=== PATIENT | male | born 1950 | race Caucasian/White ===

== ENCOUNTER 2017-11-17 07:34 | Day surgery (SDC) | payer MEDICARE ==
[2017-11-17] MEDS ORDERED: PROPOFOL 200 MG/20 ML VIAL As Ordered ×2 (08:07→08:34)
[2017-11-17] MEDS ORDERED: LIDOCAINE 2% INJ 100 MG/5 ML SDV (FOR ANES.) As Ordered (08:07)
[2017-11-17] MEDS: NS 1,000 ML IV (08:08)
[2017-11-17 09:05] LABS: BEDSIDE GLUCOSE 294 MG/DL (80-115)
== END 2017-11-17 09:31 | disposition home or self-care (01) ==
LOC: M OPP 07:34
DX: R19.5 Other fecal abnormalities (principal); Z15.09 Genetic susceptibility to other malignant neoplasm; K64.0 First degree hemorrhoids; K57.30 Diverticulosis of large intestine without perforation or abscess without bleeding; R12 Heartburn; K22.8 Other specified diseases of esophagus; K44.9 Diaphragmatic hernia without obstruction or gangrene; I10 Essential (primary) hypertension; E78.5 Hyperlipidemia, unspecified; E10.9 Type 1 diabetes mellitus without complications; E03.9 Hypothyroidism, unspecified; K76.9 Liver disease, unspecified; R19.7 Diarrhea, unspecified; K21.9 Gastro-esophageal reflux disease without esophagitis; R06.02 Shortness of breath; M06.9 Rheumatoid arthritis, unspecified; M19.90 Unspecified osteoarthritis, unspecified site; M51.9 Unspecified thoracic, thoracolumbar and lumbosacral intervertebral disc disorder; G47.8 Other sleep disorders; G47.30 Sleep apnea, unspecified; R06.83 Snoring; Z87.442 Personal history of urinary calculi; R42 Dizziness and giddiness; Z88.5 Allergy status to narcotic agent; Z88.1 Allergy status to other antibiotic agents; Z88.8 Allergy status to other drugs, medicaments and biological substances; Z79.82 Long term (current) use of aspirin; Z79.899 Other long term (current) drug therapy; Z80.42 Family history of malignant neoplasm of prostate
CPT/HCPCS: 45378

== ENCOUNTER → 2021-05-17 | Outpatient (CLI) | payer MEDICARE ==
[~2021-05-17] MED LIST: ASPI81TA26 PO; ATOR80TA59 PO; BUPR1TAB53 PO; DITR1TAB PO; FLOM0.4C39 PO; IMOD2CAP PO; IRBE150T7 PO; LEVO100T5 PO; MYRB50TA PO; NOVOINJ3 SC; TOUJ1.2I SC; TYLE325T5 PO; VICT18IN SC
--- NOTE | 2021-05-17 15:40 | REP ---
INDICATION: CALCULUS OF KIDNEY COMPARISON: 02/05/2006 TECHNIQUE: Supine view of the abdomen and pelvis. FINDINGS: Evaluation is limited by overlying bowel gas and significant fecal stasis. However, bilateral intrarenal calculi are suspected measuring up to approximately 5 mm in the lower pole right kidney and 3 mm lower pole left kidney. Stable phleboliths noted in the left hemipelvis. Skeletal structures demonstrate age-related changes. IMPRESSION: 1. Bilateral nephroliths suggested. 2. Bowel gas pattern demonstrates significant fecal stasis. <Electronically signed by Francis Devries > 05/17/21 [id number]
== END ==
LOC: M PLAIMG 14:41
PROVIDERS: ATTEND Urology
DX: N20.0 Calculus of kidney (principal)

== ENCOUNTER 2022-11-25 19:37 | Observation (INO) | payer MEDICARE ==
[~2022-11-25] VITALS: Ht 152.4 cm; Wt 97.8 kg
[2022-11-25 20:31] LABS: BASO # 0.1 10^3/uL (0.0-0.2); BASO % 0.7 % (0.0-1.0); EOS # 0.2 10^3/uL (0.0-0.5); EOS % 2.4 % (0.0-3.0); HEMATOCRIT 44.7 % (42.0-52.0); HEMOGLOBIN 14.6 g/dl (13.5-17.5); LYMPH # 2.1 10^3/uL (1.5-5.0); LYMPH % 21.8 % (24.0-44.0); MEAN CORPUSCULAR HEMOGLOBIN 31.4 pg (27.0-33.0); MEAN CORPUSCULAR HGB CONC 32.7 g/dl (32.0-36.5); MEAN CORPUSCULAR VOLUME 96.1 fl (80.0-96.0); MONO # 0.9 10^3/uL (0.0-0.8); MONO % 9.1 % (2.0-8.0); NEUTROPHILS # 6.4 10^3/uL (1.5-8.5); NEUTROPHILS % 65.8 % (36.0-66.0); PLATELET COUNT, AUTOMATED 216 10^3/uL (150-450); RED BLOOD COUNT 4.65 10^6/uL (4.30-6.10); WHITE BLOOD COUNT 9.8 10^3/uL (4.0-10.0)
[2022-11-25 20:59] LABS: BLOOD UREA NITROGEN 20 MG/DL (9-23); CALCIUM LEVEL 8.7 MG/DL (8.3-10.6); CARBON DIOXIDE LEVEL 26 MMOL/L (20-31); CHLORIDE LEVEL 107 MMOL/L (98-107); CREATININE FOR GFR 0.74 MG/DL (0.70-1.30); GLOMERULAR FILTRATION RATE > 60.0 (>42); GLUCOSE, FASTING 116 MG/DL (74-106); POTASSIUM SERUM 4.4 MMOL/L (3.5-5.1); SODIUM LEVEL 138 MMOL/L (136-145)
[2022-11-25 21:02] LABS: THYROID STIMULATING HORMONE 1.471 uIU/ML (0.55-4.78)
[2022-11-25 21:03] LABS: RSV AMPLIFICATION NEGATIVE (NEGATIVE)
[2022-11-25] MEDS ORDERED: oxyCODONE 5MG TAB PO PRN (23:30)
[2022-11-25] MEDS ORDERED: IBUPROFEN 400MG TAB PO PRN (23:30)
[2022-11-26] MEDS ORDERED: GLUCOSE 4GM CHEW TABLET PO PRN (00:05)
[2022-11-26] MEDS ORDERED: DEXTROSE 50% 50ML SYRINGE IV PRN (00:05)
[2022-11-26] MEDS ORDERED: GLUCAGON INJ 1MG VIAL SC PRN (00:05)
[2022-11-26] MEDS ORDERED: DULA3PEN SC (00:15)
[2022-11-26] MEDS ORDERED: LOPE2TAB12 PO (00:15)
[2022-11-26] MEDS ORDERED: INSU100V2 SC (00:15)
[2022-11-26] MEDS ORDERED: ACET650T61 PO (00:15)
[2022-11-26] MEDS ORDERED: JARD1TAB PO (00:16)
[2022-11-26] MEDS ORDERED: ZETI10TA16 PO (00:16)
[2022-11-26] MEDS ORDERED: OMEP40CA5 PO (00:16)
[2022-11-26] MEDS ORDERED: HOME MED LIST COMPLETE! XX SCH (00:20)
[2022-11-26 00:29] VITALS: BP 147/78
[2022-11-26] MEDS ORDERED: LOPERAMIDE 2 MG CAPLET PO PRN (00:40)
[2022-11-26 05:46] LABS: HEMATOCRIT 41.3 % (42.0-52.0); HEMOGLOBIN 13.5 g/dl (13.5-17.5); MEAN CORPUSCULAR HEMOGLOBIN 31.4 pg (27.0-33.0); MEAN CORPUSCULAR HGB CONC 32.7 g/dl (32.0-36.5); PLATELET COUNT, AUTOMATED 210 10^3/uL (150-450); WHITE BLOOD COUNT 9.7 10^3/uL (4.0-10.0)
[2022-11-26] MEDS: LEVOTHYROXINE 100MCG TABLET (0.1MG) PO SCH (05:52)
[2022-11-26] MEDS: ACETAMINOPHEN TAB 650MG DOSE (2X325MG) PO PRN (05:52)
[2022-11-26 06:00] VITALS: BP 141/78
[2022-11-26 06:12] LABS: BLOOD UREA NITROGEN 20 MG/DL (9-23); CALCIUM LEVEL 8.6 MG/DL (8.3-10.6); CARBON DIOXIDE LEVEL 28 MMOL/L (20-31); CHLORIDE LEVEL 106 MMOL/L (98-107); CREATININE FOR GFR 0.69 MG/DL (0.70-1.30); GLOMERULAR FILTRATION RATE > 60.0 (>42); GLUCOSE, FASTING 102 MG/DL (74-106); MAGNESIUM LEVEL 1.8 MG/DL (1.8-2.4); POTASSIUM SERUM 4.3 MMOL/L (3.5-5.1); SODIUM LEVEL 141 MMOL/L (136-145)
[2022-11-26] MEDS: ENOXAPARIN 40MG/0.4ML SYRINGE (J1650 PER 10MG) SC SCH ×2 (08:34→20:07)
[2022-11-26] MEDS: buPROPion **SR TABLET** (ZYBAN) 150MG PO SCH (08:34)
[2022-11-26] MEDS: ASPIRIN 81MG ENTERIC TABLET PO SCH (08:35)
[2022-11-26] MEDS: OMEPRAZOLE 20MG CAP PO SCH (08:35)
[2022-11-26] MEDS: oxyBUTYnin *DITROPAN XL* 5 MG TABCR PO SCH ×2 (08:35→20:07)
[2022-11-26] MEDS: IRBESARTAN 150MG TAB PO SCH (08:36)
[2022-11-26] MEDS: ATORVASTATIN 20 MG TAB PO SCH (08:36)
[2022-11-26] MEDS: TAMSULOSIN 0.4 MG CAP PO SCH (08:36)
[2022-11-26] MEDS: INSULIN LISPRO (NovoLOG) PER UNIT SC SCH ×4 (08:56→20:07)
[2022-11-26] MEDS ORDERED: LEVEMIR (INSULIN DETEMIR) 1 UNITS/0.01ML SC SCH (09:00)
[2022-11-26] MEDS: EZETIMIBE 10MG TABLET (ZETIA) PO SCH (09:07)
[2022-11-26 14:00] VITALS: BP 127/74
[2022-11-26 21:15] VITALS: BP 125/74
[2022-11-27 06:00] VITALS: BP 131/67
[2022-11-27] MEDS: LEVOTHYROXINE 100MCG TABLET (0.1MG) PO SCH (06:00)
[2022-11-27] MEDS: INSULIN LISPRO (NovoLOG) PER UNIT SC SCH ×4 (09:05→20:29)
[2022-11-27] MEDS: oxyBUTYnin *DITROPAN XL* 5 MG TABCR PO SCH ×2 (09:06→20:36)
[2022-11-27] MEDS: ATORVASTATIN 20 MG TAB PO SCH (09:06)
[2022-11-27] MEDS: OMEPRAZOLE 20MG CAP PO SCH (09:06)
[2022-11-27] MEDS: buPROPion **SR TABLET** (ZYBAN) 150MG PO SCH (09:06)
[2022-11-27] MEDS: EZETIMIBE 10MG TABLET (ZETIA) PO SCH (09:06)
[2022-11-27] MEDS: IRBESARTAN 150MG TAB PO SCH (09:06)
[2022-11-27] MEDS: TAMSULOSIN 0.4 MG CAP PO SCH (09:06)
[2022-11-27] MEDS: ASPIRIN 81MG ENTERIC TABLET PO SCH (09:06)
[2022-11-27] MEDS: ENOXAPARIN 40MG/0.4ML SYRINGE (J1650 PER 10MG) SC SCH ×2 (09:07→20:37)
[2022-11-27] MEDS: LEVEMIR (INSULIN DETEMIR) 1 UNITS/0.01ML SC SCH (20:36)
[2022-11-27] MEDS: NYSTATIN 100,000 UNITS/GM TOPICAL PWD 15GM TOP SCH (20:37)
[2022-11-28] MEDS: LEVOTHYROXINE 100MCG TABLET (0.1MG) PO SCH (05:46)
[2022-11-28 05:52] VITALS: BP 134/74
[2022-11-28] MEDS: INSULIN LISPRO (NovoLOG) PER UNIT SC SCH ×4 (08:09→21:00)
[2022-11-28] MEDS: TAMSULOSIN 0.4 MG CAP PO SCH (08:10)
[2022-11-28] MEDS: oxyBUTYnin *DITROPAN XL* 5 MG TABCR PO SCH ×2 (08:11→21:32)
[2022-11-28] MEDS: ATORVASTATIN 20 MG TAB PO SCH (08:11)
[2022-11-28] MEDS: OMEPRAZOLE 20MG CAP PO SCH (08:11)
[2022-11-28] MEDS: ASPIRIN 81MG ENTERIC TABLET PO SCH (08:11)
[2022-11-28] MEDS: IRBESARTAN 150MG TAB PO SCH (08:12)
[2022-11-28] MEDS: ENOXAPARIN 40MG/0.4ML SYRINGE (J1650 PER 10MG) SC SCH ×2 (08:14→21:33)
[2022-11-28] MEDS: buPROPion **SR TABLET** (ZYBAN) 150MG PO SCH (08:14)
[2022-11-28] MEDS: EZETIMIBE 10MG TABLET (ZETIA) PO SCH (08:14)
[2022-11-28] MEDS: NYSTATIN 100,000 UNITS/GM TOPICAL PWD 15GM TOP SCH ×2 (08:15→21:33)
[2022-11-28] MEDS: ACETAMINOPHEN TAB 650MG DOSE (2X325MG) PO PRN (08:17)
[2022-11-28] MEDS: LEVEMIR (INSULIN DETEMIR) 1 UNITS/0.01ML SC SCH (21:33)
[2022-11-29 00:36] VITALS: O2SAT 94
[2022-11-29 06:40] VITALS: BP 118/66
[2022-11-29] MEDS: LEVOTHYROXINE 100MCG TABLET (0.1MG) PO SCH (06:40)
[2022-11-29] MEDS: INSULIN LISPRO (NovoLOG) PER UNIT SC SCH ×4 (07:40→20:15)
[2022-11-29] MEDS: EZETIMIBE 10MG TABLET (ZETIA) PO SCH (09:20)
[2022-11-29] MEDS: TAMSULOSIN 0.4 MG CAP PO SCH (09:20)
[2022-11-29] MEDS: OMEPRAZOLE 20MG CAP PO SCH (09:20)
[2022-11-29] MEDS: ASPIRIN 81MG ENTERIC TABLET PO SCH (09:20)
[2022-11-29] MEDS: ATORVASTATIN 20 MG TAB PO SCH (09:21)
[2022-11-29] MEDS: buPROPion **SR TABLET** (ZYBAN) 150MG PO SCH (09:21)
[2022-11-29] MEDS: oxyBUTYnin *DITROPAN XL* 5 MG TABCR PO SCH ×2 (09:21→21:26)
[2022-11-29] MEDS: IRBESARTAN 150MG TAB PO SCH (09:24)
[2022-11-29] MEDS: ENOXAPARIN 40MG/0.4ML SYRINGE (J1650 PER 10MG) SC SCH ×2 (09:24→21:26)
[2022-11-29] MEDS: NYSTATIN 100,000 UNITS/GM TOPICAL PWD 15GM TOP SCH ×2 (09:24→21:26)
[2022-11-29] MEDS: LEVEMIR (INSULIN DETEMIR) 1 UNITS/0.01ML SC SCH (20:15)
[2022-11-30 01:21] VITALS: O2SAT 96
[2022-11-30 05:43] VITALS: BP 128/62
[2022-11-30] MEDS: LEVOTHYROXINE 100MCG TABLET (0.1MG) PO SCH (06:23)
[2022-11-30] MEDS: INSULIN LISPRO (NovoLOG) PER UNIT SC SCH ×4 (08:00→21:00)
[2022-11-30] MEDS: buPROPion **SR TABLET** (ZYBAN) 150MG PO SCH (08:01)
[2022-11-30] MEDS: EZETIMIBE 10MG TABLET (ZETIA) PO SCH (08:01)
[2022-11-30] MEDS: ASPIRIN 81MG ENTERIC TABLET PO SCH (08:01)
[2022-11-30] MEDS: ENOXAPARIN 40MG/0.4ML SYRINGE (J1650 PER 10MG) SC SCH ×2 (08:01→21:26)
[2022-11-30] MEDS: IRBESARTAN 150MG TAB PO SCH (08:02)
[2022-11-30] MEDS: oxyBUTYnin *DITROPAN XL* 5 MG TABCR PO SCH ×2 (08:02→21:25)
[2022-11-30] MEDS: OMEPRAZOLE 20MG CAP PO SCH (08:02)
[2022-11-30] MEDS: ATORVASTATIN 20 MG TAB PO SCH (08:02)
[2022-11-30] MEDS: TAMSULOSIN 0.4 MG CAP PO SCH (08:02)
[2022-11-30] MEDS: NYSTATIN 100,000 UNITS/GM TOPICAL PWD 15GM TOP SCH ×2 (08:03→21:26)
[2022-11-30] MEDS: LEVEMIR (INSULIN DETEMIR) 1 UNITS/0.01ML SC SCH (21:25)
[2022-12-01] MEDS: LEVOTHYROXINE 100MCG TABLET (0.1MG) PO SCH (05:38)
[2022-12-01 06:00] VITALS: BP 131/71
[2022-12-01] MEDS: EZETIMIBE 10MG TABLET (ZETIA) PO SCH (08:46)
[2022-12-01] MEDS: INSULIN LISPRO (NovoLOG) PER UNIT SC SCH ×4 (08:46→20:54)
[2022-12-01] MEDS: oxyBUTYnin *DITROPAN XL* 5 MG TABCR PO SCH (08:46)
[2022-12-01] MEDS: ATORVASTATIN 20 MG TAB PO SCH (08:46)
[2022-12-01] MEDS: ASPIRIN 81MG ENTERIC TABLET PO SCH (08:47)
[2022-12-01] MEDS: IRBESARTAN 150MG TAB PO SCH (08:47)
[2022-12-01] MEDS: TAMSULOSIN 0.4 MG CAP PO SCH (08:47)
[2022-12-01] MEDS: OMEPRAZOLE 20MG CAP PO SCH (08:47)
[2022-12-01] MEDS: ENOXAPARIN 40MG/0.4ML SYRINGE (J1650 PER 10MG) SC SCH ×2 (08:47→21:53)
[2022-12-01] MEDS: buPROPion **SR TABLET** (ZYBAN) 150MG PO SCH (08:47)
[2022-12-01] MEDS: NYSTATIN 100,000 UNITS/GM TOPICAL PWD 15GM TOP SCH ×2 (08:48→21:56)
[2022-12-01] MEDS ORDERED: NIRMATRELVIR/RITONAVIR CO-PACK (EMERGENCY USE AUTH) PO SCH (09:00)
[2022-12-01 11:15] LABS: LDH LACTATE DEHYDROGENASE 175 U/L (120-246)
[2022-12-01 11:17] LABS: ALBUMIN 3.1 G/DL (3.2-5.2); ALKALINE PHOSPHATASE 117 U/L (46-116); ALT/SGPT 40 U/L (7.0-40); AST/SGOT 32 U/L (<34); BILIRUBIN,DIRECT 0.2 MG/DL (<0.4); BILIRUBIN,TOTAL 0.5 MG/DL (0.3-1.2); TOTAL PROTEIN 6.5 G/DL (5.7-8.2)
[2022-12-01 11:18] LABS: INR 0.94; PROTHROMBIN TIME 12.8 SECONDS (12.5-14.5)
[2022-12-01 11:19] LABS: FERRITIN 197.1 NG/ML (10.5-307.3); PARTIAL THROMBOPLASTIN TIME 32.6 SECONDS (24.8-34.2)
[2022-12-01 11:22] LABS: D-DIMER QUANT 1046.3 ng/ml (<500)
[2022-12-01 11:25] LABS: CPK CREATINE PHOSPHOKINASE 77 U/L (46-171)
[2022-12-01] MEDS: LEVEMIR (INSULIN DETEMIR) 1 UNITS/0.01ML SC SCH (21:54)
[2022-12-01] MEDS: NIRMATRELVIR/RITONAVIR CO-PACK (EMERGENCY USE AUTH) PO SCH (21:56)
[2022-12-02 06:00] VITALS: BP 112/65
[2022-12-02] MEDS: LEVOTHYROXINE 100MCG TABLET (0.1MG) PO SCH (06:24)
[2022-12-02] MEDS: INSULIN LISPRO (NovoLOG) PER UNIT SC SCH ×4 (08:13→21:00)
[2022-12-02] MEDS: NYSTATIN 100,000 UNITS/GM TOPICAL PWD 15GM TOP SCH ×2 (08:13→22:18)
[2022-12-02] MEDS: buPROPion **SR TABLET** (ZYBAN) 150MG PO SCH (08:14)
[2022-12-02] MEDS: EZETIMIBE 10MG TABLET (ZETIA) PO SCH (08:14)
[2022-12-02] MEDS: ENOXAPARIN 40MG/0.4ML SYRINGE (J1650 PER 10MG) SC SCH ×2 (08:14→22:17)
[2022-12-02] MEDS: OMEPRAZOLE 20MG CAP PO SCH (08:15)
[2022-12-02] MEDS: IRBESARTAN 150MG TAB PO SCH (08:15)
[2022-12-02] MEDS: ASPIRIN 81MG ENTERIC TABLET PO SCH (08:18)
[2022-12-02] MEDS: NIRMATRELVIR/RITONAVIR CO-PACK (EMERGENCY USE AUTH) PO SCH ×2 (08:32→22:18)
[2022-12-02] MEDS: LEVEMIR (INSULIN DETEMIR) 1 UNITS/0.01ML SC SCH (21:00)
[2022-12-03 06:00] VITALS: BP 114/63
[2022-12-03] MEDS: LEVOTHYROXINE 100MCG TABLET (0.1MG) PO SCH (06:13)
[2022-12-03] MEDS: INSULIN LISPRO (NovoLOG) PER UNIT SC SCH ×4 (09:00→21:00)
[2022-12-03] MEDS: ENOXAPARIN 40MG/0.4ML SYRINGE (J1650 PER 10MG) SC SCH ×2 (09:00→22:23)
[2022-12-03] MEDS: buPROPion **SR TABLET** (ZYBAN) 150MG PO SCH (09:01)
[2022-12-03] MEDS: OMEPRAZOLE 20MG CAP PO SCH (09:01)
[2022-12-03] MEDS: IRBESARTAN 150MG TAB PO SCH (09:01)
[2022-12-03] MEDS: ASPIRIN 81MG ENTERIC TABLET PO SCH (09:01)
[2022-12-03] MEDS: NYSTATIN 100,000 UNITS/GM TOPICAL PWD 15GM TOP SCH ×2 (09:02→22:24)
[2022-12-03] MEDS: NIRMATRELVIR/RITONAVIR CO-PACK (EMERGENCY USE AUTH) PO SCH ×2 (09:09→22:26)
[2022-12-03] MEDS: EZETIMIBE 10MG TABLET (ZETIA) PO SCH (09:10)
[2022-12-03] MEDS: LEVEMIR (INSULIN DETEMIR) 1 UNITS/0.01ML SC SCH (21:00)
[2022-12-04 03:49] VITALS: O2SAT 97
[2022-12-04 06:00] VITALS: BP 131/68
[2022-12-04] MEDS: LEVOTHYROXINE 100MCG TABLET (0.1MG) PO SCH (06:43)
[2022-12-04] MEDS: ENOXAPARIN 40MG/0.4ML SYRINGE (J1650 PER 10MG) SC SCH ×2 (08:52→21:08)
[2022-12-04] MEDS: buPROPion **SR TABLET** (ZYBAN) 150MG PO SCH (08:53)
[2022-12-04] MEDS: EZETIMIBE 10MG TABLET (ZETIA) PO SCH (08:53)
[2022-12-04] MEDS: OMEPRAZOLE 20MG CAP PO SCH (08:53)
[2022-12-04] MEDS: ASPIRIN 81MG ENTERIC TABLET PO SCH (08:53)
[2022-12-04] MEDS: NYSTATIN 100,000 UNITS/GM TOPICAL PWD 15GM TOP SCH ×2 (08:54→21:09)
[2022-12-04] MEDS: INSULIN LISPRO (NovoLOG) PER UNIT SC SCH ×4 (08:54→20:59)
[2022-12-04] MEDS: IRBESARTAN 150MG TAB PO SCH (08:57)
[2022-12-04] MEDS: NIRMATRELVIR/RITONAVIR CO-PACK (EMERGENCY USE AUTH) PO SCH ×2 (09:01→21:08)
[2022-12-04 14:00] VITALS: BP 113/64
[2022-12-04] MEDS: LEVEMIR (INSULIN DETEMIR) 1 UNITS/0.01ML SC SCH (21:08)
[2022-12-05 06:00] VITALS: BP 127/64
[2022-12-05] MEDS: LEVOTHYROXINE 100MCG TABLET (0.1MG) PO SCH (06:15)
[2022-12-05] MEDS: INSULIN LISPRO (NovoLOG) PER UNIT SC SCH ×4 (08:53→21:00)
[2022-12-05] MEDS: ASPIRIN 81MG ENTERIC TABLET PO SCH (08:54)
[2022-12-05] MEDS: OMEPRAZOLE 20MG CAP PO SCH (08:54)
[2022-12-05] MEDS: IRBESARTAN 150MG TAB PO SCH (08:54)
[2022-12-05] MEDS: buPROPion **SR TABLET** (ZYBAN) 150MG PO SCH (08:54)
[2022-12-05] MEDS: ENOXAPARIN 40MG/0.4ML SYRINGE (J1650 PER 10MG) SC SCH ×2 (08:54→21:52)
[2022-12-05] MEDS: EZETIMIBE 10MG TABLET (ZETIA) PO SCH (08:54)
[2022-12-05] MEDS: NYSTATIN 100,000 UNITS/GM TOPICAL PWD 15GM TOP SCH ×2 (08:55→21:52)
[2022-12-05] MEDS: NIRMATRELVIR/RITONAVIR CO-PACK (EMERGENCY USE AUTH) PO SCH ×2 (08:56→21:51)
[2022-12-05] MEDS: LEVEMIR (INSULIN DETEMIR) 1 UNITS/0.01ML SC SCH (21:51)
[2022-12-06] MEDS: LEVOTHYROXINE 100MCG TABLET (0.1MG) PO SCH (05:46)
[2022-12-06 06:00] VITALS: BP 124/58
[2022-12-06] MEDS: INSULIN LISPRO (NovoLOG) PER UNIT SC SCH ×4 (08:30→20:53)
[2022-12-06] MEDS: ENOXAPARIN 40MG/0.4ML SYRINGE (J1650 PER 10MG) SC SCH ×2 (08:30→21:01)
[2022-12-06] MEDS: buPROPion **SR TABLET** (ZYBAN) 150MG PO SCH (08:31)
[2022-12-06] MEDS: EZETIMIBE 10MG TABLET (ZETIA) PO SCH (08:31)
[2022-12-06] MEDS: NYSTATIN 100,000 UNITS/GM TOPICAL PWD 15GM TOP SCH ×2 (08:31→21:02)
[2022-12-06] MEDS: ASPIRIN 81MG ENTERIC TABLET PO SCH (08:31)
[2022-12-06] MEDS: OMEPRAZOLE 20MG CAP PO SCH (08:31)
[2022-12-06] MEDS: IRBESARTAN 150MG TAB PO SCH (08:33)
[2022-12-06] MEDS ORDERED: NIRMATRELVIR/RITONAVIR CO-PACK (EMERGENCY USE AUTH) PO ONE (09:00)
[2022-12-06] MEDS: LEVEMIR (INSULIN DETEMIR) 1 UNITS/0.01ML SC SCH (21:01)
[2022-12-07] MEDS: LEVOTHYROXINE 100MCG TABLET (0.1MG) PO SCH (05:37)
[2022-12-07 06:00] VITALS: BP 121/61
[2022-12-07] MEDS: ASPIRIN 81MG ENTERIC TABLET PO SCH (08:28)
[2022-12-07] MEDS: INSULIN LISPRO (NovoLOG) PER UNIT SC SCH ×4 (08:28→21:11)
[2022-12-07] MEDS: EZETIMIBE 10MG TABLET (ZETIA) PO SCH (08:28)
[2022-12-07] MEDS: OMEPRAZOLE 20MG CAP PO SCH (08:29)
[2022-12-07] MEDS: IRBESARTAN 150MG TAB PO SCH (08:31)
[2022-12-07] MEDS: buPROPion **SR TABLET** (ZYBAN) 150MG PO SCH (08:31)
[2022-12-07] MEDS: NYSTATIN 100,000 UNITS/GM TOPICAL PWD 15GM TOP SCH ×2 (08:32→21:11)
[2022-12-07] MEDS: ENOXAPARIN 40MG/0.4ML SYRINGE (J1650 PER 10MG) SC SCH ×2 (08:32→21:09)
[2022-12-07] MEDS: LEVEMIR (INSULIN DETEMIR) 1 UNITS/0.01ML SC SCH (21:10)
[2022-12-08] MEDS: LEVOTHYROXINE 100MCG TABLET (0.1MG) PO SCH (05:29)
[2022-12-08 06:00] VITALS: BP 125/66
[2022-12-08] MEDS: INSULIN LISPRO (NovoLOG) PER UNIT SC SCH ×4 (07:56→20:50)
[2022-12-08] MEDS: ASPIRIN 81MG ENTERIC TABLET PO SCH (09:41)
[2022-12-08] MEDS: OMEPRAZOLE 20MG CAP PO SCH (09:41)
[2022-12-08] MEDS: EZETIMIBE 10MG TABLET (ZETIA) PO SCH (09:41)
[2022-12-08] MEDS: IRBESARTAN 150MG TAB PO SCH (09:42)
[2022-12-08] MEDS: NYSTATIN 100,000 UNITS/GM TOPICAL PWD 15GM TOP SCH ×2 (09:42→20:59)
[2022-12-08] MEDS: buPROPion **SR TABLET** (ZYBAN) 150MG PO SCH (09:42)
[2022-12-08] MEDS: ENOXAPARIN 40MG/0.4ML SYRINGE (J1650 PER 10MG) SC SCH ×2 (09:43→20:58)
[2022-12-08] MEDS: LEVEMIR (INSULIN DETEMIR) 1 UNITS/0.01ML SC SCH (20:50)
[2022-12-09 06:00] VITALS: BP 129/73
[2022-12-09] MEDS: LEVOTHYROXINE 100MCG TABLET (0.1MG) PO SCH (06:24)
[2022-12-09] MEDS: ENOXAPARIN 40MG/0.4ML SYRINGE (J1650 PER 10MG) SC SCH ×2 (07:53→21:20)
[2022-12-09] MEDS: buPROPion **SR TABLET** (ZYBAN) 150MG PO SCH (07:53)
[2022-12-09] MEDS: ASPIRIN 81MG ENTERIC TABLET PO SCH (07:53)
[2022-12-09] MEDS: INSULIN LISPRO (NovoLOG) PER UNIT SC SCH ×4 (07:53→21:19)
[2022-12-09] MEDS: TAMSULOSIN 0.4 MG CAP PO SCH (07:54)
[2022-12-09] MEDS: oxyBUTYnin *DITROPAN XL* 5 MG TABCR PO SCH ×2 (07:54→21:20)
[2022-12-09] MEDS: OMEPRAZOLE 20MG CAP PO SCH (07:54)
[2022-12-09] MEDS: IRBESARTAN 150MG TAB PO SCH (07:54)
[2022-12-09] MEDS: EZETIMIBE 10MG TABLET (ZETIA) PO SCH (07:54)
[2022-12-09] MEDS: ATORVASTATIN 20 MG TAB PO SCH (07:55)
[2022-12-09] MEDS: NYSTATIN 100,000 UNITS/GM TOPICAL PWD 15GM TOP SCH ×2 (07:55→21:20)
[2022-12-09 12:45] LABS: HEPATITIS B SURFACE ANTIGEN NEGATIVE (NEGATIVE)
[2022-12-09 12:58] LABS: HIV SCREEN CENTAUR SOURCE NEGATIVE (NEGATIVE)
[2022-12-09] MEDS: LEVEMIR (INSULIN DETEMIR) 1 UNITS/0.01ML SC SCH (21:20)
[2022-12-10] MEDS: LEVOTHYROXINE 100MCG TABLET (0.1MG) PO SCH (05:36)
[2022-12-10 05:39] VITALS: BP 130/73
[2022-12-10] MEDS: ENOXAPARIN 40MG/0.4ML SYRINGE (J1650 PER 10MG) SC SCH ×2 (09:34→22:01)
[2022-12-10] MEDS: INSULIN LISPRO (NovoLOG) PER UNIT SC SCH ×4 (09:35→21:00)
[2022-12-10] MEDS: oxyBUTYnin *DITROPAN XL* 5 MG TABCR PO SCH ×2 (09:36→22:01)
[2022-12-10] MEDS: buPROPion **SR TABLET** (ZYBAN) 150MG PO SCH (09:36)
[2022-12-10] MEDS: IRBESARTAN 150MG TAB PO SCH (09:36)
[2022-12-10] MEDS: TAMSULOSIN 0.4 MG CAP PO SCH (09:36)
[2022-12-10] MEDS: ATORVASTATIN 20 MG TAB PO SCH (09:37)
[2022-12-10] MEDS: OMEPRAZOLE 20MG CAP PO SCH (09:37)
[2022-12-10] MEDS: ASPIRIN 81MG ENTERIC TABLET PO SCH (09:38)
[2022-12-10] MEDS: NYSTATIN 100,000 UNITS/GM TOPICAL PWD 15GM TOP SCH ×2 (09:39→22:02)
[2022-12-10] MEDS: EZETIMIBE 10MG TABLET (ZETIA) PO SCH (09:42)
[2022-12-10 14:00] VITALS: BP 108/62
[2022-12-10 22:00] VITALS: O2SAT 94
[2022-12-10] MEDS: LEVEMIR (INSULIN DETEMIR) 1 UNITS/0.01ML SC SCH (22:01)
[2022-12-11 06:00] VITALS: BP 118/61
[2022-12-11] MEDS: LEVOTHYROXINE 100MCG TABLET (0.1MG) PO SCH (06:24)
[2022-12-11] MEDS: INSULIN LISPRO (NovoLOG) PER UNIT SC SCH ×4 (09:25→21:00)
[2022-12-11] MEDS: buPROPion **SR TABLET** (ZYBAN) 150MG PO SCH (09:26)
[2022-12-11] MEDS: IRBESARTAN 150MG TAB PO SCH (09:26)
[2022-12-11] MEDS: ENOXAPARIN 40MG/0.4ML SYRINGE (J1650 PER 10MG) SC SCH ×2 (09:26→21:49)
[2022-12-11] MEDS: NYSTATIN 100,000 UNITS/GM TOPICAL PWD 15GM TOP SCH ×2 (09:26→21:51)
[2022-12-11] MEDS: EZETIMIBE 10MG TABLET (ZETIA) PO SCH (09:26)
[2022-12-11] MEDS: ASPIRIN 81MG ENTERIC TABLET PO SCH (09:27)
[2022-12-11] MEDS: OMEPRAZOLE 20MG CAP PO SCH (09:27)
[2022-12-11] MEDS: oxyBUTYnin *DITROPAN XL* 5 MG TABCR PO SCH ×2 (09:27→21:48)
[2022-12-11] MEDS: ATORVASTATIN 20 MG TAB PO SCH (09:27)
[2022-12-11] MEDS: TAMSULOSIN 0.4 MG CAP PO SCH (09:28)
[2022-12-11] MEDS: LEVEMIR (INSULIN DETEMIR) 1 UNITS/0.01ML SC SCH (21:50)
[2022-12-12] MEDS: LEVOTHYROXINE 100MCG TABLET (0.1MG) PO SCH (05:15)
[2022-12-12 06:00] VITALS: BP 120/64
[2022-12-12] MEDS: ATORVASTATIN 20 MG TAB PO SCH (08:18)
[2022-12-12] MEDS: buPROPion **SR TABLET** (ZYBAN) 150MG PO SCH (08:18)
[2022-12-12] MEDS: ENOXAPARIN 40MG/0.4ML SYRINGE (J1650 PER 10MG) SC SCH (08:18)
[2022-12-12] MEDS: INSULIN LISPRO (NovoLOG) PER UNIT SC SCH ×2 (08:18→12:54)
[2022-12-12] MEDS: EZETIMIBE 10MG TABLET (ZETIA) PO SCH (08:18)
[2022-12-12] MEDS: OMEPRAZOLE 20MG CAP PO SCH (08:18)
[2022-12-12 08:19] VITALS: BP 120/64
[2022-12-12] MEDS: IRBESARTAN 150MG TAB PO SCH (08:19)
[2022-12-12] MEDS: NYSTATIN 100,000 UNITS/GM TOPICAL PWD 15GM TOP SCH (08:19)
[2022-12-12] MEDS: ASPIRIN 81MG ENTERIC TABLET PO SCH (08:19)
[2022-12-12] MEDS: TAMSULOSIN 0.4 MG CAP PO SCH (08:19)
[2022-12-12] MEDS: oxyBUTYnin *DITROPAN XL* 5 MG TABCR PO SCH (08:19)
== END 2022-12-12 13:43 | disposition home or self-care (01) ==
LOC: M ED 19:37 → M ED INP 19:38 → M MSPAV 11-26 00:29
PROVIDERS: ADMIT Internal Medicine; ATTEND Student in an Organized Health Care Education/Training Program
DX: M48.02 Spinal stenosis, cervical region (principal); R29.6 Repeated falls; E11.9 Type 2 diabetes mellitus without complications; I10 Essential (primary) hypertension; E03.9 Hypothyroidism, unspecified; N40.1 Benign prostatic hyperplasia with lower urinary tract symptoms; N32.81 Overactive bladder; K21.9 Gastro-esophageal reflux disease without esophagitis; F32.A Depression, unspecified; E78.5 Hyperlipidemia, unspecified; G47.33 Obstructive sleep apnea (adult) (pediatric); M19.90 Unspecified osteoarthritis, unspecified site; G25.2 Other specified forms of tremor; Z91.81 History of falling; R53.1 Weakness; U07.1 COVID-19; I67.82 Cerebral ischemia; J32.0 Chronic maxillary sinusitis; Z88.5 Allergy status to narcotic agent; Z88.1 Allergy status to other antibiotic agents; Z79.899 Other long term (current) drug therapy; Z79.82 Long term (current) use of aspirin; Z79.84 Long term (current) use of oral hypoglycemic drugs; Z79.4 Long term (current) use of insulin; Z79.890 Hormone replacement therapy; Z87.891 Personal history of nicotine dependence
CPT/HCPCS: 36415; 70450; 71045; 72125; 72141; 72148; 73030; 73564; 80048; 80076; 82550; 82728; 83615; 83735; 84443; 84484; 85025; 85027; 85379; 85384; 85610; 85730; 86140; 86803; 87340; 87389; 87631; 87635; 93005; 93041; 94760; 96372; 97110; 97116; 97162; 97165; 97168; 97530; 97535; 99285; G0378; J1650; J1815

== ENCOUNTER → 2023-03-10 | Outpatient (REF) | payer MEDICARE, BC ==
[~2023-03-10] MED LIST changes: +ACET650T61 PO; +DULA3PEN SC; +INSU100V2 SC; +JARD1TAB PO; +LOPE2TAB12 PO; +OMEP40CA5 PO; +ZETI10TA16 PO
[2023-03-10 14:44] LABS: BASO # 0.1 10^3/uL (0.0-0.2); BASO % 0.8 % (0.0-1.0); EOS # 0.4 10^3/uL (0.0-0.5); EOS % 4.7 % (0.0-3.0); HEMATOCRIT 45.5 % (42.0-52.0); HEMOGLOBIN 14.9 g/dl (13.5-17.5); LYMPH # 2.3 10^3/uL (1.5-5.0); LYMPH % 24.7 % (24.0-44.0); MEAN CORPUSCULAR HGB CONC 32.7 g/dl (32.0-36.5); MEAN CORPUSCULAR VOLUME 94.8 fl (80.0-96.0); MONO % 10.6 % (2.0-8.0); NEUTROPHILS # 5.4 10^3/uL (1.5-8.5); NEUTROPHILS % 58.9 % (36.0-66.0); PLATELET COUNT, AUTOMATED 208 10^3/uL (150-450); WHITE BLOOD COUNT 9.1 10^3/uL (4.0-10.0)
[2023-03-10 15:08] LABS: BLOOD UREA NITROGEN 26 MG/DL (9-23); CALCIUM LEVEL 8.2 MG/DL (8.3-10.6); CARBON DIOXIDE LEVEL 23 MMOL/L (20-31); CHLORIDE LEVEL 108 MMOL/L (98-107); CHOLESTEROL LEVEL 125 MG/DL (<200); CHOLESTEROL RISK RATIO 2.13 (<5); CREATININE FOR GFR 0.75 MG/DL (0.70-1.30); GLOMERULAR FILTRATION RATE > 60.0 (>42); GLUCOSE, FASTING 139 MG/DL (74-106); HDL CHOLESTEROL 58.6 MG/DL (>40); LDL CHOLESTEROL 47.8 MG/DL (<100); NON-HDL-C 66.4 MG/DL; POTASSIUM SERUM 4.7 MMOL/L (3.5-5.1); SODIUM LEVEL 137 MMOL/L (136-145); TRIGLYCERIDES LEVEL 93 MG/DL (<150)
== END ==
LOC: SKLAB2 13:46
PROVIDERS: ATTEND Internal Medicine
DX: Z01.89 Encounter for other specified special examinations (principal); Z79.899 Other long term (current) drug therapy

== ENCOUNTER → 2023-03-16 | Outpatient (REF) | payer MEDICARE, MEDICAID ==
[2023-03-16 16:14] LABS: BASO # 0.1 10^3/uL (0.0-0.2); BASO % 0.7 % (0.0-1.0); EOS # 0.4 10^3/uL (0.0-0.5); EOS % 3.7 % (0.0-3.0); HEMATOCRIT 44.8 % (42.0-52.0); HEMOGLOBIN 14.6 g/dl (13.5-17.5); LYMPH # 2.7 10^3/uL (1.5-5.0); LYMPH % 27.9 % (24.0-44.0); MEAN CORPUSCULAR HGB CONC 32.6 g/dl (32.0-36.5); MEAN CORPUSCULAR VOLUME 95.1 fl (80.0-96.0); MONO # 0.9 10^3/uL (0.0-0.8); MONO % 9.3 % (2.0-8.0); NEUTROPHILS # 5.5 10^3/uL (1.5-8.5); NEUTROPHILS % 58.1 % (36.0-66.0); PLATELET COUNT, AUTOMATED 224 10^3/uL (150-450); RED BLOOD COUNT 4.71 10^6/uL (4.30-6.10); WHITE BLOOD COUNT 9.5 10^3/uL (4.0-10.0)
[2023-03-16 16:31] LABS: BLOOD UREA NITROGEN 33 MG/DL (9-23); CALCIUM LEVEL 8.3 MG/DL (8.3-10.6); CARBON DIOXIDE LEVEL 22 MMOL/L (20-31); CHLORIDE LEVEL 105 MMOL/L (98-107); CREATININE FOR GFR 0.75 MG/DL (0.70-1.30); GLOMERULAR FILTRATION RATE > 60.0 (>42); GLUCOSE, FASTING 141 MG/DL (74-106); POTASSIUM SERUM 4.5 MMOL/L (3.5-5.1); SODIUM LEVEL 136 MMOL/L (136-145)
== END ==
LOC: SKLAB2 14:15
PROVIDERS: ATTEND Internal Medicine
DX: J02.9 Acute pharyngitis, unspecified (principal); R50.9 Fever, unspecified

== ENCOUNTER → 2023-04-07 | Outpatient (REF) | payer MEDICARE, MEDICAID ==
[~2023-04-07] MED LIST changes: -INSU100V2 SC; +INSU100V6 SC
[2023-04-07 13:51] LABS: HEMATOCRIT 46.9 % (42.0-52.0); HEMOGLOBIN 15.5 g/dl (13.5-17.5); MEAN CORPUSCULAR VOLUME 93.8 fl (80.0-96.0); PLATELET COUNT, AUTOMATED 213 10^3/uL (150-450); WHITE BLOOD COUNT 8.8 10^3/uL (4.0-10.0)
[2023-04-07 14:18] LABS: ALBUMIN 3.2 G/DL (3.2-5.2); ALKALINE PHOSPHATASE 118 U/L (46-116); ALT/SGPT 79 U/L (7.0-40); AST/SGOT 32 U/L (<34); BILIRUBIN,TOTAL 0.6 MG/DL (0.3-1.2); BLOOD UREA NITROGEN 41 MG/DL (9-23); CALCIUM LEVEL 9.7 MG/DL (8.3-10.6); CARBON DIOXIDE LEVEL 20 MMOL/L (20-31); CHLORIDE LEVEL 105 MMOL/L (98-107); CHOLESTEROL LEVEL 127 MG/DL (<200); CHOLESTEROL RISK RATIO 2.31 (<5); CREATININE FOR GFR 0.67 MG/DL (0.70-1.30); GLOMERULAR FILTRATION RATE > 60.0 (>42); GLUCOSE, FASTING 122 MG/DL (74-106); HDL CHOLESTEROL 54.8 MG/DL (>40); LDL CHOLESTEROL 57.6 MG/DL (<100); NON-HDL-C 72.2 MG/DL; POTASSIUM SERUM 4.5 MMOL/L (3.5-5.1); SODIUM LEVEL 134 MMOL/L (136-145); TOTAL PROTEIN 6.6 G/DL (5.7-8.2); TRIGLYCERIDES LEVEL 73 MG/DL (<150)
[2023-04-07 15:17] LABS: HEMOGLOBIN A1c 6.5 % (4.0-6.0)
[2023-04-07 15:21] LABS: CREATININE, URINE 26.6 MG/DL; MALB URINE SIEMENS < 3.0 MG/L; MAU/CREAT RATIO 11.2 MCG/MG (0.0-30.0)
== END ==
LOC: SKLAB2 12:24
PROVIDERS: ATTEND Internal Medicine
DX: E03.9 Hypothyroidism, unspecified (principal); E78.5 Hyperlipidemia, unspecified; E11.9 Type 2 diabetes mellitus without complications

== ENCOUNTER → 2023-08-31 | Outpatient (CLI) | payer MEDICARE, MEDICAID ==
[~2023-08-31] MED LIST changes: +EZET10TA58 PO; -ZETI10TA16 PO
== END ==
LOC: M SOG 07:56
PROVIDERS: ATTEND Physician Assistant
DX: M79.642 Pain in left hand (principal); M79.641 Pain in right hand

== ENCOUNTER → 2023-09-15 | Outpatient (CLI) | payer MEDICARE, MEDICAID | LOC: M SOG 08:12 | PROVIDERS: ATTEND Physician Assistant | DX: M79.642 Pain in left hand (principal); M79.641 Pain in right hand ==

== ENCOUNTER → 2023-09-29 | Outpatient (REF) | payer MEDICARE, MEDICAID | LOC: SKLAB2 14:45 | PROVIDERS: ATTEND Internal Medicine | DX: R53.83 Other fatigue (principal) ==

== ENCOUNTER → 2023-10-05 | Outpatient (REF) | payer MEDICARE, MEDICAID ==
[2023-10-05 10:17] LABS: HEMOGLOBIN A1c 7.4 % (4.0-6.0)
[2023-10-05 10:21] LABS: HEMATOCRIT 35.6 % (42.0-52.0); HEMOGLOBIN 11.9 g/dl (13.5-17.5); MEAN CORPUSCULAR HEMOGLOBIN 32.3 pg (27.0-33.0); MEAN CORPUSCULAR HGB CONC 33.4 g/dl (32.0-36.5); MEAN CORPUSCULAR VOLUME 96.7 fl (80.0-96.0); PLATELET COUNT, AUTOMATED 328 10^3/uL (150-450); RED BLOOD COUNT 3.68 10^6/uL (4.30-6.10); WHITE BLOOD COUNT 8.7 10^3/uL (4.0-10.0)
[2023-10-05 10:39] LABS: ALBUMIN 2.1 G/DL (3.2-5.2); ALKALINE PHOSPHATASE 111 U/L (46-116); ALT/SGPT 201 U/L (7.0-40); AST/SGOT 81 U/L (<34); BILIRUBIN,TOTAL 0.5 MG/DL (0.3-1.2); BLOOD UREA NITROGEN 52 MG/DL (9-23); CALCIUM LEVEL 8.3 MG/DL (8.3-10.6); CARBON DIOXIDE LEVEL 25 MMOL/L (20-31); CHLORIDE LEVEL 105 MMOL/L (98-107); CHOLESTEROL LEVEL 109 MG/DL (<200); CHOLESTEROL RISK RATIO 2.57 (<5); CREATININE FOR GFR 0.63 MG/DL (0.70-1.30); GLOMERULAR FILTRATION RATE > 60.0 (>42); GLUCOSE, FASTING 104 MG/DL (74-106); HDL CHOLESTEROL 42.4 MG/DL (>40); LDL CHOLESTEROL 53.8 MG/DL (<100); NON-HDL-C 66.6 MG/DL; POTASSIUM SERUM 5.3 MMOL/L (3.5-5.1); SODIUM LEVEL 135 MMOL/L (136-145); TOTAL PROTEIN 5.7 G/DL (5.7-8.2); TRIGLYCERIDES LEVEL 64 MG/DL (<150)
== END ==
LOC: SKLAB2 07:00
PROVIDERS: ATTEND Internal Medicine
DX: E11.9 Type 2 diabetes mellitus without complications (principal); I10 Essential (primary) hypertension

== ENCOUNTER → 2023-10-13 | Outpatient (REF) | payer MEDICARE, MEDICAID ==
[~2023-10-13] MED LIST changes: +IRBE150T27 PO; -IRBE150T7 PO
[2023-10-13 10:23] LABS: BLOOD UREA NITROGEN 57 MG/DL (9-23); CALCIUM LEVEL 7.9 MG/DL (8.3-10.6); CARBON DIOXIDE LEVEL 23 MMOL/L (20-31); CHLORIDE LEVEL 104 MMOL/L (98-107); CREATININE FOR GFR 0.53 MG/DL (0.70-1.30); GLOMERULAR FILTRATION RATE > 60.0 (>42); GLUCOSE, FASTING 185 MG/DL (74-106); POTASSIUM SERUM 5.7 MMOL/L (3.5-5.1); SODIUM LEVEL 132 MMOL/L (136-145)
== END ==
LOC: SKLAB2 07:00
PROVIDERS: ATTEND Internal Medicine
DX: E86.0 Dehydration (principal)

== ENCOUNTER → 2023-10-16 | Outpatient (REF) | payer MEDICARE, MEDICAID ==
[2023-10-16 09:14] LABS: HEMATOCRIT 36.7 % (42.0-52.0); HEMOGLOBIN 12.4 g/dl (13.5-17.5); MEAN CORPUSCULAR HEMOGLOBIN 31.9 pg (27.0-33.0); MEAN CORPUSCULAR HGB CONC 33.8 g/dl (32.0-36.5); MEAN CORPUSCULAR VOLUME 94.3 fl (80.0-96.0); PLATELET COUNT, AUTOMATED 344 10^3/uL (150-450); RED BLOOD COUNT 3.89 10^6/uL (4.30-6.10); WHITE BLOOD COUNT 13.7 10^3/uL (4.0-10.0)
[2023-10-16 09:27] LABS: BLOOD UREA NITROGEN 57 MG/DL (9-23); CALCIUM LEVEL 8.1 MG/DL (8.3-10.6); CARBON DIOXIDE LEVEL 23 MMOL/L (20-31); CHLORIDE LEVEL 99 MMOL/L (98-107); CREATININE FOR GFR 0.46 MG/DL (0.70-1.30); GLOMERULAR FILTRATION RATE > 60.0 (>42); GLUCOSE, FASTING 196 MG/DL (74-106); POTASSIUM SERUM 5.4 MMOL/L (3.5-5.1); SODIUM LEVEL 129 MMOL/L (136-145)
== END ==
LOC: SKLAB2 07:00
PROVIDERS: ATTEND Nurse Practitioner Family
DX: E87.5 Hyperkalemia (principal); D64.9 Anemia, unspecified

== ENCOUNTER → 2023-10-17 | Outpatient (REF) | payer MEDICARE, MEDICAID ==
[2023-10-17 08:43] LABS: HEMATOCRIT 33.7 % (42.0-52.0); HEMOGLOBIN 11.3 g/dl (13.5-17.5); MEAN CORPUSCULAR HEMOGLOBIN 31.7 pg (27.0-33.0); MEAN CORPUSCULAR HGB CONC 33.5 g/dl (32.0-36.5); MEAN CORPUSCULAR VOLUME 94.7 fl (80.0-96.0); PLATELET COUNT, AUTOMATED 339 10^3/uL (150-450); RED BLOOD COUNT 3.56 10^6/uL (4.30-6.10); WHITE BLOOD COUNT 14.4 10^3/uL (4.0-10.0)
[2023-10-17 09:03] LABS: BLOOD UREA NITROGEN 45 MG/DL (9-23); CALCIUM LEVEL 7.9 MG/DL (8.3-10.6); CARBON DIOXIDE LEVEL 25 MMOL/L (20-31); CHLORIDE LEVEL 102 MMOL/L (98-107); CREATININE FOR GFR 0.51 MG/DL (0.70-1.30); GLOMERULAR FILTRATION RATE > 60.0 (>42); GLUCOSE, FASTING 163 MG/DL (74-106); POTASSIUM SERUM 5.1 MMOL/L (3.5-5.1); SODIUM LEVEL 131 MMOL/L (136-145)
== END ==
LOC: SKLAB2 11:37
PROVIDERS: ATTEND Nurse Practitioner Family
DX: E87.1 Hypo-osmolality and hyponatremia (principal)

== ENCOUNTER → 2023-10-19 | Outpatient (REF) | payer MEDICARE, MEDICAID ==
[2023-10-19 09:08] LABS: BLOOD UREA NITROGEN 34 MG/DL (9-23); CALCIUM LEVEL 8.3 MG/DL (8.3-10.6); CARBON DIOXIDE LEVEL 25 MMOL/L (20-31); CHLORIDE LEVEL 100 MMOL/L (98-107); GLOMERULAR FILTRATION RATE > 60.0 (>42); GLUCOSE, FASTING 137 MG/DL (74-106); POTASSIUM SERUM 5.3 MMOL/L (3.5-5.1); SODIUM LEVEL 127 MMOL/L (136-145)
== END ==
LOC: SKLAB2 07:09
PROVIDERS: ATTEND Internal Medicine
DX: E87.1 Hypo-osmolality and hyponatremia (principal)

== ENCOUNTER → 2023-10-20 | Outpatient (REF) | payer MEDICARE, MEDICAID ==
[2023-10-20 07:45] LABS: BASO # 0.1 10^3/uL (0.0-0.2); BASO % 0.6 % (0.0-1.0); EOS # 0.1 10^3/uL (0.0-0.5); EOS % 0.9 % (0.0-3.0); HEMATOCRIT 32.5 % (42.0-52.0); HEMOGLOBIN 10.9 g/dl (13.5-17.5); LYMPH # 2.1 10^3/uL (1.5-5.0); LYMPH % 14.7 % (24.0-44.0); MEAN CORPUSCULAR HEMOGLOBIN 32.5 pg (27.0-33.0); MEAN CORPUSCULAR HGB CONC 33.5 g/dl (32.0-36.5); MONO # 1.7 10^3/uL (0.0-0.8); NEUTROPHILS # 9.9 10^3/uL (1.5-8.5); NEUTROPHILS % 68.6 % (36.0-66.0); PLATELET COUNT, AUTOMATED 319 10^3/uL (150-450); RED BLOOD COUNT 3.35 10^6/uL (4.30-6.10); WHITE BLOOD COUNT 14.5 10^3/uL (4.0-10.0)
[2023-10-20 08:05] LABS: BLOOD UREA NITROGEN 43 MG/DL (9-23); CALCIUM LEVEL 7.5 MG/DL (8.3-10.6); CARBON DIOXIDE LEVEL 24 MMOL/L (20-31); CHLORIDE LEVEL 102 MMOL/L (98-107); CREATININE FOR GFR 0.57 MG/DL (0.70-1.30); GLOMERULAR FILTRATION RATE > 60.0 (>42); GLUCOSE, FASTING 102 MG/DL (74-106); POTASSIUM SERUM 5.8 MMOL/L (3.5-5.1); SODIUM LEVEL 131 MMOL/L (136-145)
== END ==
LOC: SKLAB2 07:30
PROVIDERS: ATTEND Internal Medicine
DX: D72.829 Elevated white blood cell count, unspecified (principal)

== ENCOUNTER → 2023-10-20 | Outpatient (REF) | payer MEDICARE, MEDICAID | LOC: SKLAB2 07:00 | PROVIDERS: ATTEND Internal Medicine | DX: D72.829 Elevated white blood cell count, unspecified (principal); R36.9 Urethral discharge, unspecified ==

== ENCOUNTER → 2023-10-21 | Outpatient (REF) | payer MEDICARE, MEDICAID ==
[2023-10-21 09:24] LABS: CPK CREATINE PHOSPHOKINASE 57 U/L (46-171)
[2023-10-21 09:25] LABS: ALBUMIN 1.7 G/DL (3.2-5.2); ALKALINE PHOSPHATASE 144 U/L (46-116); ALT/SGPT 129 U/L (7.0-40); AST/SGOT 53 U/L (<34); BILIRUBIN,TOTAL 0.3 MG/DL (0.3-1.2); BLOOD UREA NITROGEN 28 MG/DL (9-23); CARBON DIOXIDE LEVEL 25 MMOL/L (20-31); CHLORIDE LEVEL 103 MMOL/L (98-107); CREATININE FOR GFR 0.42 MG/DL (0.70-1.30); GLOMERULAR FILTRATION RATE > 60.0 (>42); GLUCOSE, FASTING 85 MG/DL (74-106); POTASSIUM SERUM 4.9 MMOL/L (3.5-5.1); SODIUM LEVEL 131 MMOL/L (136-145); TOTAL PROTEIN 5.7 G/DL (5.7-8.2)
== END ==
LOC: SKLAB2 07:30
PROVIDERS: ATTEND Nurse Practitioner Family
DX: E87.5 Hyperkalemia (principal)

== ENCOUNTER → 2023-10-23 | Outpatient (CLI) | payer MEDICARE, MEDICAID | LOC: M RAD 09:37 | PROVIDERS: ATTEND Internal Medicine | DX: K59.00 Constipation, unspecified (principal) ==

== ENCOUNTER → 2023-10-23 | Outpatient (REF) | payer MEDICARE, MEDICAID | LOC: SKLAB2 06:50 | PROVIDERS: ATTEND Nurse Practitioner Family | DX: Z53.8 Procedure and treatment not carried out for other reasons (principal) ==

== ENCOUNTER → 2023-10-23 | Outpatient (REF) | payer MEDICARE, MEDICAID ==
[2023-10-23 09:30] LABS: ALBUMIN 2.1 G/DL (3.2-5.2); ALKALINE PHOSPHATASE 145 U/L (46-116); ALT/SGPT 131 U/L (7.0-40); AST/SGOT 57 U/L (<34); BILIRUBIN,TOTAL 0.5 MG/DL (0.3-1.2); BLOOD UREA NITROGEN 39 MG/DL (9-23); CALCIUM LEVEL 7.9 MG/DL (8.3-10.6); CARBON DIOXIDE LEVEL 25 MMOL/L (20-31); CHLORIDE LEVEL 100 MMOL/L (98-107); CREATININE FOR GFR 0.52 MG/DL (0.70-1.30); GLOMERULAR FILTRATION RATE > 60.0 (>42); GLUCOSE, FASTING 87 MG/DL (74-106); SODIUM LEVEL 130 MMOL/L (136-145); TOTAL PROTEIN 6.4 G/DL (5.7-8.2)
== END ==
LOC: SKLAB2 07:05
PROVIDERS: ATTEND Nurse Practitioner Family
DX: E78.5 Hyperlipidemia, unspecified (principal); K59.00 Constipation, unspecified

== ENCOUNTER → 2023-10-26 | Outpatient (REF) | payer MEDICARE, MEDICAID ==
[2023-10-26 11:19] LABS: BASO # 0.1 10^3/uL (0.0-0.2); BASO % 0.7 % (0.0-1.0); EOS # 0.2 10^3/uL (0.0-0.5); EOS % 1.7 % (0.0-3.0); HEMATOCRIT 34.7 % (42.0-52.0); HEMOGLOBIN 11.2 g/dl (13.5-17.5); LYMPH # 2.5 10^3/uL (1.5-5.0); LYMPH % 19.7 % (24.0-44.0); MEAN CORPUSCULAR HEMOGLOBIN 31.3 pg (27.0-33.0); MEAN CORPUSCULAR HGB CONC 32.3 g/dl (32.0-36.5); MEAN CORPUSCULAR VOLUME 96.9 fl (80.0-96.0); MONO # 1.2 10^3/uL (0.0-0.8); MONO % 9.6 % (2.0-8.0); NEUTROPHILS # 8.5 10^3/uL (1.5-8.5); NEUTROPHILS % 66.7 % (36.0-66.0); PLATELET COUNT, AUTOMATED 290 10^3/uL (150-450); RED BLOOD COUNT 3.58 10^6/uL (4.30-6.10); WHITE BLOOD COUNT 12.7 10^3/uL (4.0-10.0)
[2023-10-26 11:41] LABS: BLOOD UREA NITROGEN 25 MG/DL (9-23); CALCIUM LEVEL 8.3 MG/DL (8.3-10.6); CARBON DIOXIDE LEVEL 26 MMOL/L (20-31); CHLORIDE LEVEL 104 MMOL/L (98-107); CREATININE FOR GFR 0.42 MG/DL (0.70-1.30); GLOMERULAR FILTRATION RATE > 60.0 (>42); GLUCOSE, FASTING 217 MG/DL (74-106); SODIUM LEVEL 136 MMOL/L (136-145)
== END ==
LOC: SKLAB2 07:39
PROVIDERS: ATTEND Internal Medicine
DX: N18.9 Chronic kidney disease, unspecified (principal)

== ENCOUNTER → 2023-11-05 | Outpatient (CLI) | payer MEDICARE, MEDICAID | LOC: M RAD 07:49 | PROVIDERS: ATTEND Nurse Practitioner Family | DX: K76.0 Fatty (change of) liver, not elsewhere classified (principal); E87.1 Hypo-osmolality and hyponatremia; R94.5 Abnormal results of liver function studies; K80.20 Calculus of gallbladder without cholecystitis without obstruction ==

== ENCOUNTER → 2023-11-30 | Outpatient (REF) | payer MEDICARE, MEDICAID | LOC: M SFHCWOUN 07:41 | PROVIDERS: ATTEND Surgery | DX: L89.894 Pressure ulcer of other site, stage 4 (principal) ==

== ENCOUNTER → 2023-12-07 | Outpatient (REF) | payer MEDICARE, MEDICAID ==
[2023-12-07 10:08] LABS: HEMOGLOBIN 10.2 g/dl (13.5-17.5); MEAN CORPUSCULAR HEMOGLOBIN 31.8 pg (27.0-33.0); MEAN CORPUSCULAR HGB CONC 31.9 g/dl (32.0-36.5); MEAN CORPUSCULAR VOLUME 99.7 fl (80.0-96.0); PLATELET COUNT, AUTOMATED 312 10^3/uL (150-450); RED BLOOD COUNT 3.21 10^6/uL (4.30-6.10); WHITE BLOOD COUNT 12.7 10^3/uL (4.0-10.0)
[2023-12-07 10:39] LABS: THYROID STIMULATING HORMONE 1.129 uIU/ML (0.55-4.78)
[2023-12-07 10:44] LABS: ALBUMIN 2.1 G/DL (3.2-5.2); ALKALINE PHOSPHATASE 66 U/L (46-116); ALT/SGPT 19 U/L (7.0-40); AST/SGOT 25 U/L (<34); BILIRUBIN,DIRECT 0.2 MG/DL (<0.4); BILIRUBIN,TOTAL 0.4 MG/DL (0.3-1.2); BLOOD UREA NITROGEN 27 MG/DL (9-23); CALCIUM LEVEL 7.6 MG/DL (8.3-10.6); CARBON DIOXIDE LEVEL 26 MMOL/L (20-31); CHLORIDE LEVEL 106 MMOL/L (98-107); CREATININE FOR GFR 0.46 MG/DL (0.70-1.30); GLOMERULAR FILTRATION RATE > 60.0 (>42); GLUCOSE, FASTING 33 MG/DL (74-106); POTASSIUM SERUM 3.6 MMOL/L (3.5-5.1); SODIUM LEVEL 138 MMOL/L (136-145); TOTAL PROTEIN 5.7 G/DL (5.7-8.2)
== END ==
LOC: SKLAB2 07:56
PROVIDERS: ATTEND Internal Medicine
DX: I10 Essential (primary) hypertension (principal); E03.9 Hypothyroidism, unspecified

== ENCOUNTER → 2023-12-15 | Outpatient (REF) | payer MEDICARE, MEDICAID ==
[2023-12-15 09:41] LABS: BASO # 0.1 10^3/uL (0.0-0.2); BASO % 0.7 % (0.0-1.0); EOS # 0.4 10^3/uL (0.0-0.5); EOS % 3.6 % (0.0-3.0); HEMATOCRIT 34.2 % (42.0-52.0); HEMOGLOBIN 10.9 g/dl (13.5-17.5); LYMPH % 26.7 % (24.0-44.0); MEAN CORPUSCULAR HGB CONC 31.9 g/dl (32.0-36.5); MEAN CORPUSCULAR VOLUME 100.3 fl (80.0-96.0); MONO # 1.1 10^3/uL (0.0-0.8); MONO % 9.9 % (2.0-8.0); NEUTROPHILS # 6.5 10^3/uL (1.5-8.5); PLATELET COUNT, AUTOMATED 343 10^3/uL (150-450); RED BLOOD COUNT 3.41 10^6/uL (4.30-6.10); WHITE BLOOD COUNT 11.1 10^3/uL (4.0-10.0)
[2023-12-15 10:09] LABS: ALBUMIN 2.4 G/DL (3.2-5.2); ALKALINE PHOSPHATASE 67 U/L (46-116); ALT/SGPT < 9 U/L (7.0-40); AST/SGOT 15 U/L (<34); BILIRUBIN,TOTAL 0.5 MG/DL (0.3-1.2); BLOOD UREA NITROGEN 24 MG/DL (9-23); CALCIUM LEVEL 8.6 MG/DL (8.3-10.6); CARBON DIOXIDE LEVEL 28 MMOL/L (20-31); CHLORIDE LEVEL 100 MMOL/L (98-107); GLOMERULAR FILTRATION RATE > 60.0 (>42); GLUCOSE, FASTING 308 MG/DL (74-106); POTASSIUM SERUM 4.7 MMOL/L (3.5-5.1); SODIUM LEVEL 134 MMOL/L (136-145); TOTAL PROTEIN 6.1 G/DL (5.7-8.2)
== END ==
LOC: SKLAB2 07:50
PROVIDERS: ATTEND Internal Medicine
DX: R53.1 Weakness (principal)

== ENCOUNTER → 2024-01-15 | Outpatient (REF) | payer MEDICARE, MEDICAID | LOC: SKLAB4 07:00 | PROVIDERS: ATTEND Nurse Practitioner Family | DX: N20.0 Calculus of kidney (principal); K59.00 Constipation, unspecified; I87.8 Other specified disorders of veins; M16.0 Bilateral primary osteoarthritis of hip; M47.9 Spondylosis, unspecified ==

== ENCOUNTER → 2024-02-16 | Outpatient (REF) | payer MEDICARE, MEDICAID ==
[2024-02-16 11:13] LABS: MEAN CORPUSCULAR HEMOGLOBIN 30.6 pg (27.0-33.0); MEAN CORPUSCULAR HGB CONC 32.4 g/dl (32.0-36.5); MEAN CORPUSCULAR VOLUME 94.4 fl (80.0-96.0); PLATELET COUNT, AUTOMATED 229 10^3/uL (150-450); WHITE BLOOD COUNT 7.2 10^3/uL (4.0-10.0)
[2024-02-16 11:43] LABS: BLOOD UREA NITROGEN 42 MG/DL (9-23); CALCIUM LEVEL 8.6 MG/DL (8.3-10.6); CARBON DIOXIDE LEVEL 26 MMOL/L (20-31); CHLORIDE LEVEL 105 MMOL/L (98-107); CREATININE FOR GFR 0.61 MG/DL (0.70-1.30); GLOMERULAR FILTRATION RATE > 60.0 (>42); GLUCOSE, FASTING 239 MG/DL (74-106); POTASSIUM SERUM 4.4 MMOL/L (3.5-5.1); SODIUM LEVEL 136 MMOL/L (136-145)
== END ==
LOC: SKLAB4 10:03
PROVIDERS: ATTEND Internal Medicine
DX: Z01.818 Encounter for other preprocedural examination (principal); I44.7 Left bundle-branch block, unspecified

== ENCOUNTER → 2024-02-26 | Outpatient (CLI) | payer MEDICARE, MEDICAID ==
[~2024-02-26] MED LIST changes: +ACET1TAB55 PO; +AMLO1TAB24 PO; +BUPR150T12 PO; +DULC5TAB PO; +GABA-282 PO; +GUAI100L6 PO; +JUVEPOW4 PO; +LACT20EL PO; +LANTINJ4 SC; +LEVO-89 PO; +MILKSUS3 PO; +MIRA3350 PO; +OMEP-173 PO; +ROPI5TAB19 PO; +SENN-23 PO
== END ==
LOC: M SOG 10:58
PROVIDERS: ATTEND Orthopaedic Surgery
DX: M17.0 Bilateral primary osteoarthritis of knee (principal)

== ENCOUNTER 2024-03-01 07:30 | Inpatient (IN) | payer MEDICARE, MEDICAID ==
[~2024-03-01] VITALS: Ht 157.5 cm; Wt 102.5 kg
[2024-03-01] VITALS (7 sets, daily range): BP systolic 115–138; BP diastolic 65–83; TEMP 97.2–97.8; O2SAT 95–98
[2024-03-01] MEDS: ceFAZolin SOD 1 GM in D5W MINI-BAG PLUS 50 ML IV ONE (07:00)
[2024-03-01] MEDS: CelecoXIB 400 MG CAP PO ONE (07:00)
[~2024-03-01 07:30] MED LIST changes: -ACET1TAB55 PO; -BUPR150T12 PO; -DULC5TAB PO; -JUVEPOW4 PO; -LEVO-89 PO; +LIDOCAINE 2% 100MG/5ML SDV (FOR ANES.) As Ordered ONE; +LR 1,000 ML IV SCH; -MIRA3350 PO; +ONDANSETRON 4MG 2ML VIAL As Ordered ONE; +ROCURONIUM BROMIDE 50MG/5ML VIAL As Ordered ONE; -ROPI5TAB19 PO; -SENN-23 PO; +SUGAMMADEX SODIUM 500 MG/5 ML VIAL (BRIDION) As Ordered ONE; +fentaNYL 250 MCG/5 ML INJECTION As Ordered ONE; +propofoL 200 MG/20 ML VIAL As Ordered ONE
[2024-03-01] MEDS ORDERED: MIDAZOLAM INJ 2MG/2ML VIAL As Ordered ONE (08:32)
[2024-03-01] MEDS: ceFAZolin SOD 2 GM in IV 1 EA IV ONE (09:18)
[2024-03-01] MEDS: HEPARIN SOD (PORCINE) 5000UNITS/ML 1ML VIAL/SYRINGE SQ ONE (09:20)
[2024-03-01] MEDS: metroNIDAZOLE 500 MG in IV 1 EA IV ONE (09:24)
[2024-03-01] MEDS ORDERED: PHENYLephrine 500MCG 5ML (100MCG/ML) SYRINGE As Ordered ONE (09:55)
[2024-03-01] MEDS: LIDOCAINE 1% SDV 30ML VIAL As Ordered ONE (10:36)
[2024-03-01] MEDS ORDERED: MORPHINE 2 MG/ML 1ML VIAL IV PRN (10:45)
[2024-03-01] MEDS ORDERED: fentaNYL 100 MCG/2 ML INJECTION IV PRN (10:45)
[2024-03-01] MEDS ORDERED: ONDANSETRON 4MG 2ML VIAL IV PRN ×2 (10:45→11:25)
[2024-03-01] MEDS ORDERED: oxyCODONE 5MG TAB PO PRN (10:45)
[2024-03-01] MEDS: INDOCYANINE GREEN 25MG VIAL (IC-GREEN) As Ordered ONE (10:55)
[2024-03-01] MEDS ORDERED: MOM 30ML SUSPENSION UDC PO PRN (11:25)
[2024-03-01] MEDS ORDERED: PERCOCET 5MG/325MG TAB PO PRN ×2 (11:25)
[2024-03-01] MEDS ORDERED: guaiFENesin SYRUP 200MG 10ML UDC PO PRN (11:25)
[2024-03-01] MEDS ORDERED: GLUCAGON INJ 1MG VIAL SC PRN (11:30)
[2024-03-01] MEDS ORDERED: GLUCOSE 4 GM CHEW PO PRN (11:30)
[2024-03-01] MEDS ORDERED: DEXTROSE 50% 50ML SYRINGE IV PRN (11:30)
[2024-03-01] MEDS: INSULIN LISPRO (NovoLOG) PER UNIT SC SCH (12:00)
[2024-03-01] MEDS: KETOROLAC 30 MG/ML 1ML VIAL IV SCH (13:09)
[2024-03-01] MEDS: LR 1,000 ML IV SCH (13:09)
[2024-03-01] MEDS: SENOKOT S TAB PO SCH (20:17)
[2024-03-01] MEDS ORDERED: LEVO-89 PO (22:06)
[2024-03-01] MEDS ORDERED: SENN-23 PO (22:06)
[2024-03-01] MEDS ORDERED: MIRA3350 PO (22:06)
[2024-03-01] MEDS ORDERED: JUVEPOW4 PO (22:06)
[2024-03-01] MEDS ORDERED: DULC5TAB PO (22:06)
[2024-03-01] MEDS ORDERED: ROPI5TAB19 PO (22:06)
[2024-03-01] MEDS ORDERED: ACET1TAB55 PO (22:09)
[2024-03-01] MEDS ORDERED: HOME MED LIST COMPLETE! XX SCH (22:15)
[2024-03-01] MEDS ORDERED: BUPR150T12 PO (22:29)
[2024-03-01] MEDS: GABAPENTIN 300 MG CAP PO SCH (22:55)
[2024-03-01] MEDS: TAMSULOSIN 0.4 MG CAP PO SCH (22:55)
[2024-03-02 00:45] VITALS: BP 102/49; TEMP 97.3; O2SAT 100
[2024-03-02 04:45] VITALS: BP 124/69; TEMP 97.7; O2SAT 96
[2024-03-02] MEDS: LEVOTHYROXINE 100MCG TABLET (0.1MG) PO SCH (06:02)
[2024-03-02] MEDS: buPROPion **XL** TABLET 150MG (WELLBUTRIN XL) PO SCH (08:22)
[2024-03-02] MEDS: amLODIPine 5 MG TAB PO SCH (08:23)
[2024-03-02 08:43] LABS: BASO % 0.4 % (0.0-1.0); EOS # 0.4 10^3/uL (0.0-0.5); EOS % 4.4 % (0.0-3.0); HEMATOCRIT 35.2 % (42.0-52.0); HEMOGLOBIN 11.4 g/dl (13.5-17.5); LYMPH # 2.3 10^3/uL (1.5-5.0); LYMPH % 24.4 % (24.0-44.0); MEAN CORPUSCULAR HEMOGLOBIN 30.7 pg (27.0-33.0); MEAN CORPUSCULAR HGB CONC 32.4 g/dl (32.0-36.5); MEAN CORPUSCULAR VOLUME 94.9 fl (80.0-96.0); MONO # 0.8 10^3/uL (0.0-0.8); MONO % 8.4 % (2.0-8.0); NEUTROPHILS # 5.8 10^3/uL (1.5-8.5); NEUTROPHILS % 61.9 % (36.0-66.0); PLATELET COUNT, AUTOMATED 197 10^3/uL (150-450); RED BLOOD COUNT 3.71 10^6/uL (4.30-6.10); WHITE BLOOD COUNT 9.4 10^3/uL (4.0-10.0)
[2024-03-02 08:45] VITALS: BP 143/87; TEMP 97.7; O2SAT 98
[2024-03-02 09:06] LABS: BLOOD UREA NITROGEN 24 MG/DL (9-23); CALCIUM LEVEL 8.4 MG/DL (8.3-10.6); CARBON DIOXIDE LEVEL 30 MMOL/L (20-31); CHLORIDE LEVEL 105 MMOL/L (98-107); CREATININE FOR GFR 0.41 MG/DL (0.70-1.30); GLOMERULAR FILTRATION RATE > 60.0 (>42); GLUCOSE, FASTING 131 MG/DL (74-106); SODIUM LEVEL 138 MMOL/L (136-145)
[2024-03-02] MEDS: METAMUCIL (PSYLLIUM) PACKET PO SCH (12:27)
[2024-03-02] MEDS: ENOXAPARIN 40MG/0.4ML SYRINGE (J1650 PER 10MG) SC SCH (12:27)
[2024-03-02] MEDS: LEVEMIR (INSULIN DETEMIR) 1 UNITS/0.01ML SC SCH (21:07)
[2024-03-02 21:18] VITALS: BP 107/52; TEMP 98.6; O2SAT 98
[2024-03-03 04:52] VITALS: BP 117/67; TEMP 97.3; O2SAT 97
[2024-03-03] MEDS: OMEPRAZOLE 20MG CAP PO SCH (08:51)
[2024-03-03 08:55] VITALS: BP 126/67
[2024-03-03] MEDS ORDERED: OMEP-173 PO (10:26)
[2024-03-03] MEDS ORDERED: META1POW PO (10:26)
== END 2024-03-03 12:40 | DRG 982 ==
LOC: M MS5PR 12:10
PROVIDERS: ADMIT Surgery; ATTEND Surgery
PROC: 8E0W4CZ Robotic Assisted Procedure of Trunk Region, Percutaneous Endoscopic Approach (ICD-10-PCS; 2024-03-01)
PROC: 0D1N4J4 Bypass Sigmoid Colon to Cutaneous with Synthetic Substitute, Percutaneous Endoscopic Approach (ICD-10-PCS; principal; 2024-03-01 08:05)
DX: L89.154 Pressure ulcer of sacral region, stage 4 (principal); Z68.41 Body mass index [BMI] 40.0-44.9, adult; E11.51 Type 2 diabetes mellitus with diabetic peripheral angiopathy without gangrene; I10 Essential (primary) hypertension; E78.5 Hyperlipidemia, unspecified; F32.A Depression, unspecified; E03.9 Hypothyroidism, unspecified; K21.9 Gastro-esophageal reflux disease without esophagitis; E66.01 Morbid (severe) obesity due to excess calories; M48.02 Spinal stenosis, cervical region; G47.33 Obstructive sleep apnea (adult) (pediatric); N32.81 Overactive bladder; N40.0 Benign prostatic hyperplasia without lower urinary tract symptoms; M48.061 Spinal stenosis, lumbar region without neurogenic claudication; M62.50 Muscle wasting and atrophy, not elsewhere classified, unspecified site; E11.40 Type 2 diabetes mellitus with diabetic neuropathy, unspecified; Z79.4 Long term (current) use of insulin; Z79.890 Hormone replacement therapy; Z79.899 Other long term (current) drug therapy; Z88.5 Allergy status to narcotic agent; Z88.8 Allergy status to other drugs, medicaments and biological substances; Z74.01 Bed confinement status

== ENCOUNTER → 2024-05-31 | Outpatient (CLI) | payer MEDICARE, MEDICAID ==
[~2024-05-31] MED LIST changes: +ACET1TAB55 PO; +BUPR150T12 PO; +DULC5TAB PO; +JUVEPOW4 PO; +LEVO-89 PO; -LIDOCAINE 2% 100MG/5ML SDV (FOR ANES.) As Ordered ONE; -LR 1,000 ML IV SCH; +META1POW PO; +MIRA3350 PO; -ONDANSETRON 4MG 2ML VIAL As Ordered ONE; -ROCURONIUM BROMIDE 50MG/5ML VIAL As Ordered ONE; +ROPI5TAB19 PO; +SENN-23 PO; -SUGAMMADEX SODIUM 500 MG/5 ML VIAL (BRIDION) As Ordered ONE; -fentaNYL 250 MCG/5 ML INJECTION As Ordered ONE; -propofoL 200 MG/20 ML VIAL As Ordered ONE
== END ==
LOC: M RAD 12:05
PROVIDERS: ATTEND Nurse Practitioner Family
DX: M17.2 Bilateral post-traumatic osteoarthritis of knee (principal)

== ENCOUNTER → 2024-05-31 | Outpatient (REF) | payer MEDICARE, MEDICAID | LOC: SKLAB4 10:33 | PROVIDERS: ATTEND Internal Medicine | DX: Z53.8 Procedure and treatment not carried out for other reasons (principal) ==

== ENCOUNTER → 2024-06-02 | Outpatient (REF) | payer MEDICARE, MEDICAID ==
[2024-06-02 13:39] LABS: HEMOGLOBIN A1c 9.5 % (4.0-6.0)
== END ==
LOC: SKLAB4 11:26
PROVIDERS: ATTEND Internal Medicine
DX: E11.9 Type 2 diabetes mellitus without complications (principal)

== ENCOUNTER → 2024-06-16 | Outpatient (REF) | payer MEDICARE, MEDICAID | LOC: SKLAB4 07:00 | PROVIDERS: ATTEND Internal Medicine | DX: E03.9 Hypothyroidism, unspecified (principal) ==

== ENCOUNTER 2024-07-18 06:26 | Day surgery (SDC) | payer MEDICARE, MEDICAID ==
[~2024-07-18] VITALS: Ht 157.5 cm; Wt 105.2 kg
[~2024-07-18 06:26] MED LIST changes: +GABA-1172 PO; -GABA-282 PO; +LEVO125T4 PO; +META28.32 PO
[2024-07-18] MEDS: PHENYLEPHRINE 2.5% OPHTH SOL 2ML OD SCH (06:36)
[2024-07-18] MEDS: TETRACAINE 0.5% OPHTH SOLN 4ML OD SCH (06:36)
[2024-07-18] MEDS: FLURBIPROFEN 0.03% OPHTH SOLN 2.5 ML OD SCH (06:36)
[2024-07-18] MEDS: ATROPINE SULFATE 1% OPHTH SOLN 2ML BTL OD SCH (06:36)
[2024-07-18] MEDS ORDERED: OMEP40CA4 PO (06:55)
[2024-07-18] MEDS ORDERED: MIDAZOLAM INJ 2MG/2ML VIAL As Ordered ONE (06:58)
[2024-07-18] MEDS ORDERED: fentaNYL 100 MCG/2 ML INJECTION As Ordered ONE (06:58)
[2024-07-18] MEDS ORDERED: LR 1,000 ML IV SCH (07:00)
[2024-07-18] MEDS ORDERED: GLUCAGON INJ 1MG VIAL SC PRN (07:10)
[2024-07-18] MEDS ORDERED: GLUCOSE 4 GM CHEW PO PRN (07:10)
[2024-07-18] MEDS ORDERED: DEXTROSE 50% 50ML SYRINGE IV PRN (07:10)
[2024-07-18] MEDS: INSULIN LISPRO (NovoLOG) PER UNIT SC PRN (07:16)
[2024-07-18] MEDS: LIDOCAINE 1% SDV 5ML VIAL As Ordered ONE (07:44)
[2024-07-18] MEDS: CEFUROXIME 1MG/0.1ML INTRACAMERAL INJ As Ordered ONE (07:44)
[2024-07-18 08:00] VITALS: BP 174/90; TEMP 97.2; O2SAT 97
== END 2024-07-18 08:42 | disposition home or self-care (01) ==
LOC: M SDC 06:26
PROVIDERS: ATTEND Ophthalmology
DX: E11.36 Type 2 diabetes mellitus with diabetic cataract (principal); H25.11 Age-related nuclear cataract, right eye; I10 Essential (primary) hypertension; E03.9 Hypothyroidism, unspecified; E11.40 Type 2 diabetes mellitus with diabetic neuropathy, unspecified; E78.00 Pure hypercholesterolemia, unspecified; K21.9 Gastro-esophageal reflux disease without esophagitis; G47.30 Sleep apnea, unspecified; Z79.899 Other long term (current) drug therapy; Z79.890 Hormone replacement therapy; Z79.85 Long-term (current) use of injectable non-insulin antidiabetic drugs; Z79.4 Long term (current) use of insulin; Z88.5 Allergy status to narcotic agent; Z88.1 Allergy status to other antibiotic agents; Z88.8 Allergy status to other drugs, medicaments and biological substances; Z90.49 Acquired absence of other specified parts of digestive tract; Z93.3 Colostomy status; M21.371 Foot drop, right foot
CPT/HCPCS: 66984; J0697; J1815; J2250; J3010; V2632

== ENCOUNTER 2024-07-25 07:14 | Day surgery (SDC) | payer MEDICARE, MEDICAID ==
[~2024-07-25] VITALS: Ht 157.5 cm; Wt 106.6 kg
[~2024-07-25 07:14] MED LIST changes: +LR 1,000 ML IV SCH; +OMEP40CA4 PO; +fentaNYL 100 MCG/2 ML INJECTION As Ordered ONE
[2024-07-25] MEDS: TETRACAINE 0.5% OPHTH SOLN 4ML OS SCH (07:24)
[2024-07-25] MEDS: PHENYLEPHRINE 2.5% OPHTH SOL 2ML OS SCH (07:24)
[2024-07-25] MEDS: ATROPINE SULFATE 1% OPHTH SOLN 2ML BTL OS SCH (07:24)
[2024-07-25] MEDS: FLURBIPROFEN 0.03% OPHTH SOLN 2.5 ML OS SCH (07:24)
[2024-07-25] MEDS ORDERED: GLUCOSE 4 GM CHEW PO PRN (07:40)
[2024-07-25] MEDS ORDERED: GLUCAGON INJ 1MG VIAL SC PRN (07:40)
[2024-07-25] MEDS ORDERED: DEXTROSE 50% 50ML SYRINGE IV PRN (07:40)
[2024-07-25] MEDS: INSULIN LISPRO (NovoLOG) PER UNIT SC PRN (07:47)
[2024-07-25] MEDS: LIDOCAINE 1% SDV 5ML VIAL As Ordered ONE (08:18)
[2024-07-25] MEDS: CEFUROXIME 1MG/0.1ML INTRACAMERAL INJ As Ordered ONE (08:22)
[2024-07-25 08:40] VITALS: BP 125/71; TEMP 97.9; O2SAT 97
== END 2024-07-25 10:25 | disposition home or self-care (01) ==
LOC: M SDC 07:14
PROVIDERS: ATTEND Ophthalmology
DX: H25.12 Age-related nuclear cataract, left eye (principal); E11.9 Type 2 diabetes mellitus without complications; G47.30 Sleep apnea, unspecified; Z88.5 Allergy status to narcotic agent; Z88.8 Allergy status to other drugs, medicaments and biological substances; Z88.1 Allergy status to other antibiotic agents; Z79.899 Other long term (current) drug therapy
CPT/HCPCS: 66984; J0697; J1815; J3010; V2632

== ENCOUNTER → 2024-07-28 | Outpatient (REF) | payer MEDICARE, MEDICAID ==
[~2024-07-28] MED LIST changes: -LR 1,000 ML IV SCH; -fentaNYL 100 MCG/2 ML INJECTION As Ordered ONE
== END ==
LOC: SKLAB4 08:15
PROVIDERS: ATTEND Internal Medicine
DX: E03.9 Hypothyroidism, unspecified (principal)

== ENCOUNTER → 2024-09-20 | Outpatient (REF) | payer MEDICARE, MEDICAID ==
[2024-09-20 08:46] LABS: HEMATOCRIT 39.1 % (42.0-52.0); HEMOGLOBIN 12.7 g/dl (13.5-17.5); MEAN CORPUSCULAR HEMOGLOBIN 31.2 pg (27.0-33.0); MEAN CORPUSCULAR HGB CONC 32.5 g/dl (32.0-36.5); MEAN CORPUSCULAR VOLUME 96.1 fl (80.0-96.0); PLATELET COUNT, AUTOMATED 214 10^3/uL (150-450); RED BLOOD COUNT 4.07 10^6/uL (4.30-6.10); WHITE BLOOD COUNT 7.3 10^3/uL (4.0-10.0)
[2024-09-20 09:02] LABS: HEMOGLOBIN A1c 8.2 % (4.0-6.0)
[2024-09-20 09:12] LABS: BLOOD UREA NITROGEN 19 MG/DL (9-23); CALCIUM LEVEL 9.2 MG/DL (8.3-10.6); CARBON DIOXIDE LEVEL 29 MMOL/L (20-31); CHLORIDE LEVEL 100 MMOL/L (98-107); CREATININE FOR GFR 0.55 MG/DL (0.70-1.30); GLOMERULAR FILTRATION RATE > 60.0 (>42); GLUCOSE, FASTING 178 MG/DL (74-106); POTASSIUM SERUM 4.3 MMOL/L (3.5-5.1); SODIUM LEVEL 139 MMOL/L (136-145)
== END ==
LOC: SKLAB4 17:25
PROVIDERS: ATTEND Internal Medicine
DX: E11.9 Type 2 diabetes mellitus without complications (principal)

== ENCOUNTER → 2024-11-22 | Outpatient (REF) | payer MEDICARE, MEDICAID | LOC: SKLAB4 15:25 | PROVIDERS: ATTEND Internal Medicine | DX: R05.9 Cough, unspecified (principal) ==

== ENCOUNTER → 2024-12-15 | Outpatient (REF) | payer MEDICARE, MEDICAID | LOC: SKLAB4 07:00 | PROVIDERS: ATTEND Internal Medicine | DX: E03.9 Hypothyroidism, unspecified (principal); E11.9 Type 2 diabetes mellitus without complications ==